=== PATIENT | female | born 1960 | race Caucasian/White ===

== ENCOUNTER 2024-05-10 10:18 | Day surgery (SDC) | payer OTHER ==
[2024-04-07 11:37] VITALS: BMI 33.0
[2024-05-10 11:47] VITALS: TEMP 97.5
[2024-05-10 12:29] VITALS: BP 117/67; PULSE 71; RESP 18
== END 2024-05-10 12:36 | disposition home or self-care (01) ==
LOC: FASU-ENDO 10:18
PROVIDERS: ATTEND Internal Medicine Gastroenterology
PROC: 0DBL8ZX Excision of Transverse Colon, Via Natural or Artificial Opening Endoscopic, Diagnostic (ICD-10-PCS; 2024-05-10)
PROC: 0DBN8ZX Excision of Sigmoid Colon, Via Natural or Artificial Opening Endoscopic, Diagnostic (ICD-10-PCS; 2024-05-10)
PROC: 0DBP8ZX Excision of Rectum, Via Natural or Artificial Opening Endoscopic, Diagnostic (ICD-10-PCS; 2024-05-10)
PROC: 0DBB8ZX Excision of Ileum, Via Natural or Artificial Opening Endoscopic, Diagnostic (ICD-10-PCS; 2024-05-10)
PROC: 0DBM8ZX Excision of Descending Colon, Via Natural or Artificial Opening Endoscopic, Diagnostic (ICD-10-PCS; 2024-05-10)
PROC: 0DBH8ZX Excision of Cecum, Via Natural or Artificial Opening Endoscopic, Diagnostic (ICD-10-PCS; 2024-05-10)
PROC: 0DBK8ZX Excision of Ascending Colon, Via Natural or Artificial Opening Endoscopic, Diagnostic (ICD-10-PCS; principal; 2024-05-10 11:17)
DX: Z87.19 Personal history of other diseases of the digestive system (principal); K51.40 Inflammatory polyps of colon without complications; K64.1 Second degree hemorrhoids; K63.89 Other specified diseases of intestine
CPT/HCPCS: 82962; 88305-TC